=== PATIENT | female | born 1950 | race Caucasian/White ===

== ENCOUNTER → 2017-08-15 | Day surgery (SDC) | payer MEDICARE ==
[~2017-08-15] MED LIST: ATOR40TA PO; BUPIVACAINE HCL PF 0.5% 10 ML VIAL ONE; CLINDAMYCIN PHOS 900 MG/6 ML VIAL ONE; COZA100T PO; GABA300C3 PO; GLIM2TAB PO; HYDR-2768 PO; ISOSULFAN BLUE 50 MG/5 ML VIAL SQ ONE; KETOROLAC TROMETHAMINE 30 MG/ML (IVP) VIAL ONE; LACTATED RINGER'S 1000 ML INJ 1,000 ML ONE; LEVA750T9 PO; LEVO125T48 PO; METF850T PO; MIDAZOLAM HCL 2 MG/2 ML VIAL ONE; ONDANSETRON HCL 4 MG/2 ML VIAL IV PUSH ONE; PROPOFOL 200 MG/20 ML AMP IV ONE; SODIUM CHLORIDE 0.9% INJ 10 ML ONE; SODIUM CHLORIDE 0.9% SOLN 100 ML (PAB) BAG IV ONE; TOPR100T15 PO; VITATAB25 PO
--- NOTE | 2017-08-15 16:18 | TN ---
cc: GILA HENDERSON DATE OF SURGERY 08/15/2017 PRINCIPAL DIAGNOSIS Right breast cancer. PROCEDURE PERFORMED Right central lumpectomy with intraoperative radiation therapy and right axillary sentinel lymph node biopsy. SURGEON Gila Henderson MD ANESTHESIA General via LMA device. INDICATION The patient is a 67-year-old female with a history of left breast cancer treated with lumpectomy and whole breast radiation. She now presents with clinical stage I subareolar right breast cancer which is quite close to the nipple and I have recommended a central lumpectomy with nipple excision. She has agreed and has also opted for intraoperative radiation therapy. FINDINGS AT SURGERY The sentinel lymph node did not localize well but there was one suspicious node which was sent as sentinel lymph node #1. There was no radioactive count in the axilla. Because the subareolar 12 o'clock lesion was palpable, no specimen imaging was obtained. PROCEDURE PERFORMED After informed consent was obtained and site verification was performed, the patient was brought to the radiology suite where she underwent pooja tumor radionuclide injection. She was then brought to the major operating room where she underwent general anesthesia via LMA device. She was given a single dose of IV clindamycin due to penicillin allergy and sequential compression hose were placed. The right breast and arm were then prepped and draped in sterile fashion. A circumferential nipple incision with a medial and lateral transverse component was then anesthetized and incised sharply to include the nipple ducts and skin with the specimen. Further sharp and electrocautery dissection was then performed circumferentially around the subareolar tissue until the central lumpectomy specimen had been dissected free from surrounding structures. The specimen was oriented with the nipple skin anterior, one short suture superiorly, and one long suture laterally. The cavity appeared to be approximately 4 cm in size. Inspection of the specimen did demonstrate that the superior and inferior components appeared somewhat close and each of these was sharply re-excised with a stitch on the new margin and they were sent separately as permanent specimens. The lateral breast tissue was also sharply re-excised with a stitch on the new margin and this was sent as a permanent specimen. Hemostasis was easily obtained with electrocautery and a 0 Prolene pursestring suture was then placed in the deep subcutaneous tissue. A 4-cm Ze[employer] intraoperative radiation therapy applicator was then placed in the lumpectomy cavity and ultrasound confirmed good conformance to the cavity with good thickness between the skin and the applicator greater than 1 cm in all directions. The applicator was then removed and placed in a sterile drape and secured to the [employer] [facility] intrabeam machine. The applicator was again placed into the lumpectomy cavity and the pursestring suture was secured. Ultrasound of the superior, medial, inferior and lateral margins again confirmed greater than 1 cm of distance between the skin and the applicator and there was no artifact around the applicator. Intraoperative radiation therapy then commenced for 25 minutes. Following completion of therapy, the pursestring suture was cut and the applicator was removed from the breast. The intrabeam device was removed from the wound and inspection did demonstrate good hemostasis. The wound was closed using interrupted 3-0 Vicryl subcutaneous sutures and a 4-0 Monocryl subcuticular suture. Attention was then turned to the right axilla where an incision was created at the inferior aspect of the right axillary hairline using sharp dissection. Further sharp and electrocautery dissection was performed until the clavipectoral fascia was divided and the level I axilla was entered. There was minimal radioactive count in the axilla but there was an enlarged low level I axillary lymph node close to the axillary tail which was circumferentially dissected free from surrounding structures using the harmonic scalpel. Although the lymph node had no count, because it was mildly enlarged, it was sent as sentinel lymph node #1. Some mid level I palpable nodes which were smaller were also circumferentially dissected free from surrounding structures using the harmonic scalpel and these lymph nodes also had no count but they were sent as a permanent axillary specimen. Hemostasis was easily obtained using the harmonic scalpel and the wound was closed using interrupted 3-0 Vicryl subcutaneous suture and a 4-0 Monocryl subcuticular suture. Steri-Strips and sterile dressing were applied to both wounds. The patient tolerated the procedure well with minimal blood loss and she was extubated in the operating room and brought to the recovery room in good condition. All sponge and needle counts were correct at the conclusion of the case. MD BAUTISTA Bartlett/SHIRA /3:40 PM /4:04 PM REAGAN
--- NOTE | 2017-08-16 14:13 | RADONCOP ---
OPERATIVE REPORT DATE OF SURGERY: 08/15/2017 REFERRING PHYSICIAN: Gila Meadows PREOPERATIVE DIAGNOSIS: C50.911 - Malignant neoplasm of unspecified site of right female breast, Diagnosed 07/29/2017 (Active) POSTOPERATIVE DIAGNOSIS: C50.911 - Malignant neoplasm of unspecified site of right female breast, Diagnosed 07/29/2017 (Active) PROCEDURE: Intraoperative Radiation Therapy to the . SURGEON: Gila Meadows ANESTHESIA: General ESTIMATED BLOOD LOSS: Minimal INDICATIONS: Patient is a 67 year old female presenting with . She has elected to receive targeted intraoperative radiation therapy to the . DESCRIPTION OF PROCEDURE: Patient was taken to the operating room and placed on the table in the supine position. Following induction of general anesthesia, the and arm were prepped and draped sterilely. Ultrasound was performed of the breast to document the location of the breast malignancy. The wound was prepared for intraoperative radiation therapy. Based on the diameter of the cavity, a 4.0cm radiation applicator was selected for the delivery of intraoperative radiation therapy. The applicator was then sterilely mounted onto the Intrabeam Stand. Retracting sutures were placed within the skin to be used to retract the skin edges away from the radiation source. The 4.0cm Radiation applicator was then sterilely inserted into the wound. The superficial purse-string suture was tied down. Ultrasound was performed of the breast to document conformity of the surgical margins and the distance from the applicator to the skin surface (1.29cm). The retracting sutures were then secured and a moistened lap pad was placed on the skin surface, followed by an external radiation barrier. Intraoperative radiotherapy was then initiated by the Radiation Oncologist. Total treatment time was 25 minutes. Upon completion of the intraoperative radiotherapy treatment, the radiation applicator, purse-string sutures and retracting sutures were removed from the wound. The wound was once again irrigated. Hemostasis was confirmed. The patient was then turned back over to the surgeon, Gila Meadows in stable condition for completion of surgical procedure. Felton Hinson MD 08/16/2017 2:13:35 PM This report was verified and signed electronically [facility] [address] [place] [id number] RADIATION ONCOLOGY OPERATIVE REPORT Date: 08/15/2017 Patient Name: Skye Tanner
--- NOTE | 2017-08-16 14:14 | RADONCENDT ---
END OF TREATMENT SUMMARY PRIMARY REFERRING PHYSICIAN: Gila Meadows CC: Gila Meadows DIAGNOSIS: Primary C50.911 - Malignant neoplasm of unspecified site of right female breast, Diagnosed 07/29/2017 (Active) PRESCRIPTION AND TREATMENT: 2000 cGy to surface of applicator- TREATED PLAN FRACTIONS AND DATES: Course: One fraction delivered on 08/15/2017 TOLERANCE: Patient completed treatment without complications. FOLLOW UP PLAN: Patient to be seen in 8 weeks Felton Hinson MD 08/16/2017 2:13:55 PM This report was verified and signed electronically [facility] [address] [place] [address] RADIATION ONCOLOGY END OF TREATMENT SUMMARY Date: 08/15/2017 Patient Name: Skye Tanner Date of : 1950 Age: 67 Sex: Female
== END | disposition home or self-care (01) ==
LOC: ESDC 09:07
PROVIDERS: ATTEND Surgery
DX: C50.911 Malignant neoplasm of unspecified site of right female breast (principal)
CPT/HCPCS: 00400; 01610; 19301; 38525; 38792; 77290; 77300; 77334; 77370; 77424; 88307; J1885; J2250; J2405; J3010; J7120; Q9968; 77469